=== PATIENT | male | born 1940 | race Caucasian/White ===

== ENCOUNTER 2018-09-25 07:47 | Day surgery (SDC) | payer MEDICARE ==
[~2018-09-25 07:47] MED LIST: Cyclopentolate 1% Opth Soln 2 ML Bottle EYERT SCH; Lactated Ringers 1,000 ML IV SCH; Ofloxacin 0.3% Ophth Soln 5 ML Bottle EYERT SCH; Sodium Chloride 0.9% 10 ML Syringe FLUSH PRN
[2018-09-25 08:22] LABS: ANION GAP 13.8 mmol/L (5-15); CHLORIDE,CL 105 mmol/L (98-115); SODIUM,NA 141 mmol/L (136-145)
--- NOTE | 2018-09-25 08:28 | CR ---
[id number] RAD/RAD Chest PA And Lateral EXAM: RAD Chest PA And Lateral CLINICAL DATA: COPD COMPARISON: NO PREVIOUS SIMILAR EXAM IS AVAILABLE. FINDINGS: There is a left upper lobe infiltrate or mass. There are old left rib fractures Contrast CT chest is suggested. The cardiac silhouette is prominent. IMPRESSION: LEFT UPPER LOBE INFILTRATE OR MASS. Cresencio Weber MD 09/25/18 0825 Thank you for allowing us to participate in the care of your patient.
[2018-09-25] MEDS: Phenylephrine 10% Ophth Soln 5 ML Bot EYERT SCH ×2 (08:33→08:43)
== END 2018-09-25 09:10 | disposition home or self-care (01) ==
LOC: KA.SDS 07:47
PROVIDERS: ATTEND Ophthalmology
DX: H26.9 Unspecified cataract (principal); J44.9 Chronic obstructive pulmonary disease, unspecified; Z53.8 Procedure and treatment not carried out for other reasons
CPT/HCPCS: 36415; 71046; 80048; 85025; 93005